=== PATIENT | male | born 1975 ===

== ENCOUNTER 2018-02-03 10:16 | Emergency (ER) | payer MEDICARE, OTHER ==
[2018-02-03 10:21] VITALS: BMI 32.5
[2018-02-03 10:24] VITALS: BP 140/83; RESP 20; TEMP 96.4; O2SAT 99
--- NOTE | 2018-02-03 10:30 | ED PDOC ---
HPI: General Adult Time Seen by Provider: 02/03/18 10:22 Chief Complaint (Provider): rash History Per: Patient Additional Complaint(s): 43-year-old male with history of developmental delay presents with mother for evaluation of generalized body rash 3 days. Mother has been administering Benadryl which has not helped the rash. No associated fever or chills, no shortness of breath or throat discomfort. Mother reports no changes in soaps, lotions, detergents, perfumes or medications. No recent dietary changes. No recent travel. No history of similar symptoms. PMD: Dr. Ragsdale Past Medical History Reviewed: Historical Data, Nursing Documentation, Vital Signs Vital Signs: Last Vital Signs Temp 96.4 F L 02/03/18 10:29 Pulse 110 H 02/03/18 10:29 Resp 20 02/03/18 10:29 BP 140/83 02/03/18 10:29 Pulse Ox 99 02/03/18 10:30 - Medical History PMH: Diabetes, HTN (no meds at present), Hypercholesterolemia - Surgical History Surgical History: Cholecystectomy, Endoscopy - Family History Family History: States: No Known Family Hx - Living Arrangements Living Arrangements: With Family - Social History Current smoker - smoking cessation education provided: No Alcohol: None Drugs: Denies - Home Medications Home Medications: Ambulatory Orders Medication Instructions Recorded Insulin Glargine,Hum.rec.anlog 45 units SC BID 10/24/14 [Lantus] Benztropine [Benztropine Mesylate] 0.5 mg PO BID 09/13/15 Ciprofloxacin [Cipro] 500 mg PO BID 09/13/15 Divalproex [Depakote DR TAB] 125 mg PO BID 09/13/15 Risperidone 0.5 mg PO BID 09/13/15 Risperidone 2 mg PO BID 09/13/15 Zolpidem [Ambien] 10 mg PO HS 09/13/15 Acetaminophen with Codeine 1 tab PO Q6 PRN #20 tab 09/18/15 [Tylenol with Codeine No. 3 300 mg-30 mg] Ciprofloxacin HCl [Cipro] 500 mg PO Q12 #3 tab 09/18/15 Silodosin [Rapaflo] 8 mg PO DAILY #30 cap 09/18/15 predniSONE [Prednisone] 20 mg PO BID #12 tab 02/03/18 - Allergies Allergies/Adverse Reactions: Allergies Allergy/AdvReac Type Severity Reaction Status Date / Time benito Allergy levi Uncoded 12/21/14 11:57 barre Review of Systems ROS Statement: Except As Marked, All Systems Reviewed And Found Negative Constitutional: Negative for: Fever Skin: Positive for: Rash Physical Exam - Reviewed Nursing Documentation Reviewed: Yes Vital Signs Reviewed: Yes - Physical Exam Appears: Positive for: Well Skin: Positive for: Rash (Diffuse urticarial lesions noted to entire torso as well as upper and lower extremities) Eye Exam: Positive for: Normal appearance Cardiovascular/Chest: Positive for: Regular Rate, Rhythm Respiratory: Positive for: Normal Breath Sounds Neurologic/Psych: Positive for: Alert - ECG O2 Sat by Pulse Oximetry: 99 Pulse Ox Interpretation: Normal Medical Decision Making Medical Decision Making: Impression: Allergic dermatitis Plan: Five-day course of prednisone. Mother advised to continue with Benadryl. Advise PMD follow-up in 2-3 days. Disposition - Clinical Impression Clinical Impression: Allergic dermatitis Counseled Patient/Family Regarding: Diagnosis, Need For Followup, Rx Given - Disposition Referrals: Ni Ragsdale MD [Family Provider] - Disposition: Routine/Home Disposition Time: 11:02 Condition: STABLE Additional Instructions: Administer prescription meds as directed. Continue with 2 tablets of Benadryl every 6 hours. Follow-up with primary doctor in 2-3 days Prescriptions: predniSONE [Prednisone] 20 mg PO BID #12 tab Instructions: Darcy
[2018-02-03 11:17] VITALS: PULSE 99
== END 2018-02-03 11:16 | disposition home or self-care (01) ==
LOC: H.ER 10:16
DX: L23.9 Allergic contact dermatitis, unspecified cause (principal); E11.9 Type 2 diabetes mellitus without complications; I10 Essential (primary) hypertension; Z79.4 Long term (current) use of insulin; E78.00 Pure hypercholesterolemia, unspecified